=== PATIENT | female | born 1995 | race Caucasian/White ===

== ENCOUNTER 2023-04-20 14:54 | Outpatient (CLI) | payer BC | END 2023-04-20 14:55 | disposition home or self-care (01) | LOC: CSHULT 14:54 | PROVIDERS: ATTEND Family Medicine | DX: N12 Tubulo-interstitial nephritis, not specified as acute or chronic (principal); N28.9 Disorder of kidney and ureter, unspecified; N32.89 Other specified disorders of bladder | CPT/HCPCS: 76770 ==